=== PATIENT | male | born 1970 ===

== ENCOUNTER 2018-07-18 09:02 | Emergency (ER) | payer SELFPAY ==
[2018-07-18 09:14] VITALS: BP 150/97; PULSE 80; RESP 20; TEMP 98.2; O2SAT 97
--- NOTE | 2018-07-18 10:04 | RAD ---
Date of service: 07/18/2018 PROCEDURE: Radiographs of the left tibia and fibula. HISTORY: Pain/swelling s/p injury 9 days ago COMPARISON: None available. TECHNIQUE: Frontal and lateral views obtained. FINDINGS: BONES: No evidence of acute displaced fracture nor dislocation. The osseous structures appear intact. There are no cortical destructive changes JOINT SPACES: Unremarkable.. OTHER FINDINGS: No evidence of subcutaneous emphysema IMPRESSION: Unremarkable radiographs of the left tibia and fibula.
--- NOTE | 2018-07-18 10:36 | C.PDOC ---
History Of Present Illness Pt c/o left lower leg pain s/p injury while playing soccer. Time Seen by Provider: 07/18/18 09:21 Chief Complaint (Nursing): Lower Extremity Problem/Injury History Per: Patient Onset/Duration Of Symptoms: Days (9) Current Symptoms Are (Timing): Still Present Severity: Moderate Additional History Per: Prior Records Past Medical History Reviewed: Historical Data, Nursing Documentation, Vital Signs Vital Signs: Last Vital Signs Temp 98.2 F 07/18/18 09:13 Pulse 80 07/18/18 09:13 Resp 20 07/18/18 09:13 BP 150/97 H 07/18/18 09:13 Pulse Ox 97 07/18/18 09:13 - Medical History PMH: HTN Family History: States: Unknown Family Hx - Social History Hx Alcohol Use: No Hx Substance Use: No - Immunization History Hx Tetanus Toxoid Vaccination: No Hx Influenza Vaccination: No Hx Pneumococcal Vaccination: No Review Of Systems Except As Marked, All Systems Reviewed And Found Negative. Constitutional: Negative for: Fever, Weakness Cardiovascular: Negative for: Chest Pain Respiratory: Negative for: Shortness of Breath, Hemoptysis Gastrointestinal: Negative for: Abdominal Pain Musculoskeletal: Positive for: Leg Pain (left). Negative for: Back Pain Neurological: Negative for: Weakness, Numbness Physical Exam - Physical Exam Appears: Non-toxic, No Acute Distress Skin: Warm, Dry, Other (Erythema of posterior aspect of left lower leg) Eye(s): bilateral: PERRL, EOMI Neck: Normal ROM, Supple Cardiovascular: Rhythm Regular Respiratory: Normal Breath Sounds, No Accessory Muscle Use Back: No Vertebral Tenderness Extremity: Normal ROM, Calf Tenderness (left), Capillary Refill (wnl), No Deformity Pulses: Left Dorsalis Pedis: Normal Neurological/Psych: Oriented x3, Normal Motor, Normal Sensation ED Course And Treatment O2 Sat by Pulse Oximetry: 97 Pulse Ox Interpretation: Normal - Other Rad Left Tib/Fib x-rays X-Ray: Viewed By Me, Read By Radiologist Interpretation: IMPRESSION: Unremarkable radiographs of the left tibia and fibula. - CT Scan/US LLE Duplex Other Rad Studies (CT/US): Radiology Report Reviewed CT/US Interpretation: Negative for DVT Reassessment Condition: Improved Disposition Counseled Patient/Family Regarding: Studies Performed, Diagnosis, Need For Followup, Rx Given - Disposition Referrals: [facility] [Outside] Disposition: HOME/ ROUTINE Disposition Time: 10:39 Condition: STABLE Additional Instructions: Follow up in the clinic in 1 week for further evaluation. Return to the ER if you develop fever, chest pain, shortness of breath, worsening of symptoms or if you have any other concerns. Prescriptions: Acetaminophen [Tylenol Extra Strength] 2 tab PO Q6 PRN #30 tablet PRN Reason: Pain, Moderate (4-7) Cephalexin [Keflex] 500 mg PO QID 10 Days #40 capsule Forms: [facility] (Yakut), Gen Discharge Inst Yakut, General Discharge Instructions Print Language: HUNGARIAN - Clinical Impression Clinical Impression: Pain of left lower leg
--- NOTE | 2018-07-18 13:43 | VASCLAB ---
Date of service: 07/18/2018 PROCEDURE: Left Lower Extremity Venous Duplex Exam. HISTORY: Posterior leg pain/swelling/redness, r/o DVT PRIORS: None. TECHNIQUE: Left common femoral, femoral, popliteal and posterior tibial, peroneal and great saphenous veins were evaluated. Flow was assessed with color Doppler, compressibility, assessment of phasic flow and augmentation response. Report prepared by GRICELDA Ojeda FINDINGS: LEFT: 1. Common Femoral Vein: 1.1. Compressibility - Fully compressible: Thrombus - None : Flow - Phasic: Augmentation -Normal: Reflux - None. 2. Femoral Vein: 2.1. Compressibility - Fully compressible: Thrombus - None: Flow - Phasic: Augmentation -Normal: Reflux - None. 3. Popliteal Vein: 3.1. Compressibility - Fully compressible: Thrombus - None: Flow - Phasic: Augmentation -Normal: Reflux - None. 4. Posterior Tibial Vein: 4.1. Compressibility - Fully compressible: Thrombus - None: Flow - Phasic: Augmentation -Normal: Reflux - None. 5. Peroneal Vein: 5.1. Compressibility - Fully compressible: Thrombus - None: Flow - Phasic: Augmentation -Normal: Reflux - None. 6. Great Saphenous Vein: 6.1. Compressibility - Fully compressible: Thrombus - None: Flow - Phasic: Augmentation - Normal: Reflux - None. OTHER FINDINGS: IMPRESSION: No evidence of deep or superficial vein thrombosis of the left lower extremity with excellent venous flow. Normal valve function noted of the left side. Normal venous flow noted in the right common femoral vein.
== END 2018-07-18 10:46 | disposition home or self-care (01) ==
LOC: C.ER 09:02
DX: M79.662 Pain in left lower leg (principal); I10 Essential (primary) hypertension

== ENCOUNTER → 2018-08-29 | Outpatient (CLI) | payer SELFPAY | LOC: C.LAB 07:14 ==